=== PATIENT | male | born 1950 ===

== ENCOUNTER 2018-06-15 14:41 | Inpatient (IN) ==
[2018-06-15] MEDS ORDERED: ASPIRIN PO ONE (15:05)
[2018-06-15 15:29] LABS: BASO# 0.06 X1000 (0.0-0.2); BASO% 0.8 % (0.0-0.8); EOS# 0.54 X1000 (0.0-0.7); EOS% 7.6 % (0.0-10.0); HEMATOCRIT 36.8 % (42.0-52.0); HEMOGLOBIN 12.4 g/dL (14.0-18.0); IMM GRAN# 0.02 X1000 (0.0-0.04); IMM GRAN% 0.3 % (0.0-0.5); LYMPH# 2.38 X1000 (1.2-3.4); LYMPH% 33.6 % (20.5-51.1); MCHC 33.7 g/dL (33-37); MONO% 8.5 % (1.7-9.3); MPV 9.8 FL (7.4-10.4); NEUT# 3.49 X1000 (1.4-6.5); NEUT% 49.2 % (42.2-75.2); PLT 344 X1000 (130-400); RBC 4.28 XMIL (4.7-6.1); RDW 12.9 % (11.5-14.5); WBC 7.09 X1000 (4.8-10.8)
[2018-06-15 15:39] LABS: INR 0.98; PROTIME 13.8 Seconds (11.0-16.0)
[2018-06-15 15:40] LABS: PTT 27.3 Seconds (22.3-41.8)
[2018-06-15 15:57] LABS: AGAP 9; ALB/GLOB RATIO 1.7; ALBUMIN 4.4 g/dL (3.5-5.0); ALKALINE PHOSPHATASE 78 U/L (32-122); BUN 41 mg/dL (8-22); CALCIUM 9.3 mg/dL (8.8-10.2); CHLORIDE 106 mmol/L (98-107); CK PROFILE 164 U/L (24-204); COSMO 284; CREATININE 2.4 mg/dL (0.7-1.2); GLUCOSE 207 mg/dL (70-104); GOT 17 U/L (10-34); GPT 19 U/L (10-44); SODIUM 134 mmol/L (136-145); TCO2 19 mmol/L (25-35); TOTAL BILIRUBIN 0.18 mg/dL (0.20-1.00)
--- NOTE | 2018-06-15 16:05 | Diag Imaging Result Doc PS360 ---
EXAM: CHEST-1 VIEW HISTORY: chest pain TECHNIQUE: Chest single view COMPARISON: None. FINDINGS: The lungs are well expanded. The heart is not enlarged. The vessels are not distended. There are no infiltrates. No effusion identified. IMPRESSION: Negative exam. Electronically signed by Tiburcio Arceo 06/15/2018 4:03 PM
[2018-06-15 16:06] LABS: POTASSIUM 6.9 mmol/L (3.5-5.1)
[2018-06-15] MEDS ORDERED: CALCIUM CHLORIDE SYRINGE IV ONE (16:07)
[2018-06-15] MEDS ORDERED: D50W SYRINGE IV ONE ×2 (16:08→21:00)
[2018-06-15] MEDS ORDERED: HUMULIN R IV ONE ×2 (16:08→21:00)
[2018-06-15] MEDS ORDERED: SODIUM BICARBONATE 8.4% IV PUSH ONE (16:09)
[2018-06-15] MEDS ORDERED: VENTOLIN HFA INH ONE (16:10)
--- NOTE | 2018-06-15 17:06 | PROVIDER DOCUMENTATION ---
This chart was entered by Monika Carmichael Scribe, acting as scribe for Aravind Moyer MD. HPI-Chest Pain - General Chief Complaint: Weakness Stated Complaint: WEAKNESS Time Seen by Provider: 06/15/18 14:51 Source: patient Allergies/Adverse Reactions: Patient Allergies Allergy/AdvReac Type Severity Reaction Status Date / Time No Known Allergies Allergy Verified 06/15/18 15:12 Home Medications: Home Medication List Medication Instructions Recorded Confirmed Last Taken Type Unobtainable [Home Meds 06/15/18 06/15/18 Unknown History Unobtainable] - History of Present Illness-CP Nature of Presenting Problem: 68yom with hx of diabetes, HTN, renal disease c/o chest pain that radiates to neck and bilateral shoulders with low blood pressure for 2 days. He reports he went to Med [facility]urg urgent care today due to low blood pressure that he checked himself at home. He denies pain currently. He denies alcohol use and smoking. He denies diaphoresis and sob. He denies fever, chills, nausea, vomiting, diarrhea, and sob. Location: reports: central Chest Pain Radiation: reports: neck, shoulders (bilateral) Quality of Pain: reports: none Severity in ED: mild Onset/Duration: 2 days ago Timing: gone now, intermittent Context/Activities at Onset: reports: none Modifying Factors: improves with: nothing Associated Symptoms: denies: diaphoresis, fever/chills, shortness of breath Similar Symptoms Previously?: No Recently Seen Here or By Another Healthcare Provider: Yes ([facility] ) Review of Systems - Adult - REVIEW OF SYSTEMS - ADULT Constitutional: denies: chills, fever Eyes: denies: discharge, dry eyes Ears, Nose, Mouth & Throat: denies: ear discharge, ear pain Cardiovascular: reports: chest pain (radiates to neck and bilateral shoulders), other (low blood pressure). denies: palpitations Respiratory: denies: cough, shortness of breath Gastrointestinal: denies: abdominal pain, diarrhea, nausea, vomiting Genitourinary: denies: dysuria, hematuria Musculoskeletal: denies: back pain, muscle aches, muscle weakness Integumentary: reports: no symptoms reported Neurological: denies: dizziness/vertigo, headache/migraines Psychiatric: reports: no symptoms reported Endocrine: reports: no symptoms reported Hematologic/Lymphatic: reports: no symptoms reported Allergic/Immunologic: reports: no symptoms reported All Other Systems: Reviewed and Negative Past History - Adult - PAST MEDICAL HISTORY-ADULT Review of Records: reports: Old Records Reviewed, Nursing Assessment Review, Medications Reviewed Cardiovascular: reports: HTN Genitourinary: reports: kidney disease Endocrine/Immune: reports: Diabetes - PRIOR SURGERIES/PROCEDURES Surgical/Procedure History: reports: other (circumcision) - IMMUNIZATION STATUS Childhood Immunizations: See Nurse Assessment Flu Vaccine: See Nurse Assessment - FAMILY HISTORY Family History: reviewed, not pertinent - SOCIAL HISTORY Smoking: non-smoker Substance Use: denies Living Situation: family Physical Exam-General - PHYSICAL EXAM-ADULT Initial Vital Signs Reviewed: Yes - CONSTITUTIONAL General Appearance: alert, no apparent distress - EYES Eyes: PERRL/EOMI, pink conjunctivae - NECK Neck: non-tender, supple - RESPIRATORY Respiratory: lungs clear, normal breath sounds - CARDIOVASCULAR Cardiovascular: regular rate, rhythm, no murmur - GASTROINTESTINAL (ABDOMEN) Abdominal Exam: non tender, soft - MUSCULOSKELETAL Extremity: normal range of motion, non-tender, normal inspection, no pedal edema - SKIN Integumentary: normal color, warm/dry - NEUROLOGIC Neurologic: grossly normal, no motor/sensory deficits - PSYCHIATRIC Psych/Mental Status: normal mood/affect, normal thought content, normal thought process, oriented x 3 - HEART Score HEART Score: History: Highly Suspicious HEART Score: ECG: Normal HEART Score: Age: > or = 65 Years HEART Score: Risk Factors for Atherosclerotic Disease: > or = 3 Risk Factors or History of Atherosclerotic Disease HEART Score: Troponin: < or = Normal Limit Total HEART Score:: 6 Progress - PLAN OF CARE/RESULTS Progress/Plan/Lab Results: Vital Signs - 8 hr 06/15/18 14:59 06/15/18 15:00 06/15/18 15:05 Temperature 97.8 F Pulse Rate 61 62 59 L Respiratory Rate 14 14 18 Blood Pressure 174/63 174/63 O2 Sat by Pulse Oximetry 100 06/15/18 15:10 06/15/18 15:20 06/15/18 15:30 Temperature Pulse Rate 60 56 L 57 L Respiratory Rate 13 13 16 Blood Pressure O2 Sat by Pulse Oximetry 100 100 100 06/15/18 15:40 06/15/18 15:50 06/15/18 16:00 Temperature Pulse Rate 54 L 49 L 50 L Respiratory Rate 15 12 13 Blood Pressure O2 Sat by Pulse Oximetry 100 100 100 06/15/18 16:10 Temperature Pulse Rate 50 L Respiratory Rate 12 Blood Pressure O2 Sat by Pulse Oximetry 100 Laboratory Results - last 24 hr 06/15/18 06/15/18 06/15/18 14:55 14:55 14:55 WBC 7.09 RBC 4.28 L Hgb 12.4 L Hct 36.8 L MCV 86.0 MCH 29.0 MCHC 33.7 RDW Std Deviation 12.9 Plt Count 344 MPV 9.8 Immature Gran % (Auto) 0.3 Neut % (Auto) 49.2 Lymph % (Auto) 33.6 [place] % (Auto) 8.5 Eos % (Auto) 7.6 Baso % (Auto) 0.8 Immature Gran # (Auto) 0.02 Neut # (Auto) 3.49 Lymph # (Auto) 2.38 [place] # (Auto) 0.60 H Eos # (Auto) 0.54 Baso # (Auto) 0.06 PT INR PTT (Actin FS) Sodium 134 L Potassium 6.9 H* Chloride 106 Carbon Dioxide 19 L Anion Gap 9 BUN 41 H Creatinine 2.4 H BUN/Creatinine Ratio 17 Glucose 207 H POC Glucose Calculated Osmolality 284 Calcium 9.3 Total Bilirubin 0.18 L AST 17 ALT 19 Alkaline Phosphatase 78 Creatine Kinase 164 Troponin T Ioj-L-Fbggwbkisnl Pept 423 H Total Protein 7.0 Albumin 4.4 Globulin 2.6 Albumin/Globulin Ratio 1.7 06/15/18 06/15/18 06/15/18 14:55 14:55 15:13 WBC RBC Hgb Hct MCV MCH MCHC RDW Std Deviation Plt Count MPV Immature Gran % (Auto) Neut % (Auto) Lymph % (Auto) [place] % (Auto) Eos % (Auto) Baso % (Auto) Immature Gran # (Auto) Neut # (Auto) Lymph # (Auto) [place] # (Auto) Eos # (Auto) Baso # (Auto) PT 13.8 INR 0.98 PTT (Actin FS) 27.3 Sodium Potassium Chloride Carbon Dioxide Anion Gap BUN Creatinine BUN/Creatinine Ratio Glucose POC Glucose 210 H Calculated Osmolality Calcium Total Bilirubin AST ALT Alkaline Phosphatase Creatine Kinase Troponin T < 0.010 Ojn-R-Crnngyalrig Pept Total Protein Albumin Globulin Albumin/Globulin Ratio Orders Category Date Time Status Cardiac Monitoring DIRECTED Care 06/15/18 15:05 Active Oxygen Therapy- ED Nursing DIRECTED Care 06/15/18 15:05 Active Saline Loc NOW Care 06/15/18 15:05 Active CHEST-1 VIEW [RAD] Stat Exams 06/15/18 15:06 Completed CBC WITH ELECTRONIC DIFF [HEME] Stat Lab 06/15/18 14:55 Completed CK PROFILE [SP CHEM] Stat Lab 06/15/18 14:55 Completed COMPREHENSIVE METABOLIC PANEL [CHEM] Stat Lab 06/15/18 14:55 Completed POTASSIUM [CHEM] Routine Lab 06/15/18 22:00 Ordered PRO B-NATRIURETIC PEPTIDE Stat Lab 06/15/18 14:55 Completed PROTIME WITH INR [COAG] Stat Lab 06/15/18 14:55 Completed PTT [COAG] Stat Lab 06/15/18 14:55 Completed RENAL PROFILE [CHEM] DAILY Lab 06/16/18 06:00 Ordered RENAL PROFILE [CHEM] DAILY Lab 06/17/18 06:00 Ordered RENAL PROFILE [CHEM] DAILY Lab 06/18/18 06:00 Ordered TROPONIN T Stat Lab 06/15/18 14:55 Completed Albuterol Sulfate Inhaler [Ventolin Hfa] Med 06/15/18 16:10 Discontinued 2 puff INH NOW ONE Aspirin Med 06/15/18 15:05 Discontinued 325 mg PO NOW ONE Calcium Chloride Syringe Med 06/15/18 16:07 Discontinued 1 gm IV NOW ONE Dextrose 50% Syringe [D50w Syringe] Med 06/15/18 16:08 Discontinued 25 ml IV NOW ONE Insulin Human Regular [Humulin R] Med 06/15/18 16:08 Discontinued 10 unit IV NOW ONE Sodium Bicarbonate 8.4% Med 06/15/18 16:09 Discontinued 100 meq IV PUSH NOW ONE CP/SOB/Palp >45 yrs of Age Stat Oth 06/15/18 15:05 Ordered MDI Treatments Stat Oth 06/15/18 16:10 Active EKG [EKG] Routine Ther 06/16/18 07:00 Ordered EKG [EKG] Stat Ther 06/15/18 15:05 Ordered Result Diagrams: 06/15/18 14:55 06/15/18 14:55 - REASSESSMENT Reassessment #2 Time Reassessed: 17:02 Status: improving (lab reported critical hyperkalemia: following meds given ( see orders) pt rhythm now NSR @ 68, and he reports feeling better. will consult for admit.) - EKG 1 Time of EKG reading by physician:: 15:07 EKG Read and Signed by:: Aravind Moyer EKG Interpretation (*Must complete 3 of following elements*): Abnormal Rate: 58 Rhythm: Sinus bradycardia [place]: left ST Wave: normal - XRAY 1 XRAY Study: Chest Impression: Normal (FINDINGS: The lungs are well expanded. The heart is not enlarged. The vessels are not distended. There are no infiltrates. No effusion identified. IMPRESSION: Negative exam.) - CONSULTS/PCP/HOSPITALIST Notification #1 *Consult/PCP/Hospitalist*: Dr. Baptiste Time Discussed: 16:57 Consult Disposition: Admit Departure - Departure Date of Disposition Decision: 06/15/18 Time of Disposition Decision: 17:05 DIAGNOSIS: Cardiac rhythm disturbance, Acute hyperkalemia, SO (acute kidney injury) Disposition: ADMITTED INPATIENT 09 Certified Medical Emergency: Emergent Condition: Stable Referrals and Follow-Ups: Da Hood Jr, MD [Primary Care Provider] - - Critical Care Note This patient required my direct & personal management of CC.: Yes Total Time (mins): 32 Critical Care Statement: This patient required my direct personal management to treat or rule out processes, the absence of which, could potentiallly result in sudden, clinically significant life or limb threatening deterioration. Attestation - Physician/ HUYEN Attestation Patient care was provided by Advanced Practice Provider:: No The physician spent face to face time with patient:: Yes Advanced Practice Provider documentation review:: Supervising physician onsite and consulted in the evaluation and care of this patient. The physician did have a face to face encounter with the patient. This chart was documented by the indicated scribe, (Monika Carmichael Scribe) and accurately reflects the services I performed and decisions made by me, Aravind Moyer MD, as attested by the provider's signature.
[2018-06-15] MEDS: NS 1,000 ML IV SCH (17:30)
[2018-06-15 17:49] LABS: UR CREAT RANDOM 51.2 mg/dL (14-26)
[2018-06-15] MEDS: ALBUTEROL NEB INH SCH ×2 (18:03→21:30)
[2018-06-15] MEDS ORDERED: APRESOLINE IV PRN (18:18)
[2018-06-15 18:31] LABS: HEMOGLOBIN A1C 10.2 % (4.8-6.0)
[2018-06-15] MEDS: VELTASSA PO SCH (18:31)
[2018-06-15 19:11] LABS: IRON SATURATION 34 %; TIBC 255 ug/dL; TOTAL IRON 86 ug/dL (53-167); UNBOUND IRON 169 ug/dL (112-346)
[2018-06-15 19:35] LABS: FREE T4 1.04 ng/dL (0.93-1.70); TSH 2.63 uIUmL (0.27-4.20)
[2018-06-15 19:54] LABS: URINE SOURCE CATH
[2018-06-15 19:57] LABS: BILIRUBIN URINE NEGATIVE (NEGATIVE); BLOOD URINE NEGATIVE (NEGATIVE); COLOR YELLOW; GLUCOSE URINE 150 mg/dL (NEGATIVE); KETONE URINE NEGATIVE (NEGATIVE); LEUKOCYTES URINE NEGATIVE (NEGATIVE); NITRITE URINE NEGATIVE (NEGATIVE); PH URINE 5.5; PROTEIN URINE NEGATIVE (NEGATIVE); SP GRAVITY URINE 1.005; TURBIDITY URINE CLEAR (CLEAR); UROBILINOGEN URINE NORMAL (NORMAL)
[2018-06-15 19:59] LABS: UR EPITHELIAL CELLS <10 /HPF (<10); URINE BACTERIA NEGATIVE /HPF; URINE RBC <10 /HPF (<10); URINE WBC <10 /HPF (<10)
--- NOTE | 2018-06-15 20:42 | Diag Imaging Result Doc PS360 ---
EXAM: US RENAL 2 (RETROPER) COMPLETE HISTORY: sandeep, hyperkalemia TECHNIQUE: Renal ultrasound COMPARISON: None. FINDINGS: The right kidney measures 10.1 x 4.2 x 5.6 cm. Normal renal echotexture and cortical thickness. No renal stone or hydronephrosis. No renal mass. The left kidney measures 11.3 x 4.4 x 5.5 cm. There is a 2.2 cm cyst in the mid kidney. There also appears to be a 3.5 cm hypoechoic nodule in the mid kidney. No stone or hydronephrosis. The urinary bladder is distended and is normal. IMPRESSION: Left renal cyst with possibly a solid left renal mass. A CT with contrast is recommended. Electronically signed by Tiburcio Arceo 06/15/2018 8:39 PM
[2018-06-15] MEDS ORDERED: HUMULIN R SUBQ SCH (21:00)
[2018-06-15] MEDS: HEPARIN SUBQ SCH (21:11)
[2018-06-15] MEDS ORDERED: TYLENOL PO PRN (22:32)
[2018-06-16] MEDS: VELTASSA PO SCH ×2 (00:37→04:56)
[2018-06-16] MEDS: NS 1,000 ML IV SCH ×3 (03:25→23:20)
[2018-06-16] MEDS: HUMULIN R SUBQ SCH ×5 (04:56→21:13)
[2018-06-16 06:27] LABS: AGAP 14; ALBUMIN 4.3 g/dL (3.5-5.0); BUN 33 mg/dL (8-22); CALCIUM 9.9 mg/dL (8.8-10.2); CHLORIDE 102 mmol/L (98-107); COSMO 288; CREATININE 1.9 mg/dL (0.7-1.2); GLUCOSE 294 mg/dL (70-104); PHOSPHORUS 4.4 mg/dL (2.7-4.5); POTASSIUM 5.1 mmol/L (3.5-5.1); SODIUM 135 mmol/L (136-145); TCO2 19 mmol/L (25-35)
[2018-06-16] MEDS: HEPARIN SUBQ SCH ×2 (09:18→21:14)
[2018-06-16] MEDS: ASPIRIN PO SCH (09:18)
[2018-06-16] MEDS: LEVEMIR SUBQ SCH ×2 (09:22→21:14)
--- NOTE | 2018-06-16 10:27 | Diag Imaging Result Doc PS360 ---
EXAM: CT ABDOMEN/PELVIS W/O CONTRAST - 06/16/2018 HISTORY: renal mass TECHNIQUE: CT abdomen/pelvis without contrast. No contrast administered per request of the referring provider. COMPARISON: 06/15/2018 renal ultrasound FINDINGS: Evaluation for renal mass is substantially limited without administered intravenous contrast. There is no discrete solid renal mass identified. There is no renal stone or hydronephrosis identified. There are no substantial abnormalities of the liver, spleen, adrenal glands identified. There are multiple small calcifications of the pancreas, which can be seen with chronic pancreatitis. There is no pancreatic inflammation identified. There is no pancreatic mass identified. There are no calcified gallstones or pericholecystic inflammation seen. There is no evidence of bowel obstruction. The appendix is unremarkable. There is no evidence of diverticulitis. There is some retained fecal debris in colon and rectum. There is no free air, free fluid, or abscess identified. There are nonspecific small mesenteric and retroperitoneal lymph nodes. There are lumbar spine degenerative changes noted. IMPRESSION: No discrete solid renal mass. However, a solid renal mass may not be visible without administered intravenous contrast. Small pancreatic calcifications, which can be seen with chronic pancreatitis. No evidence of pancreatic inflammation. Nonspecific small mesenteric and retroperitoneal lymph nodes. Lumbar spine degenerative changes. Possible constipation. This exam was performed using automated exposure control, adjustment of mA or kV according to patient size, and/or use of iterative reconstruction technique. Electronically signed by Thuan Buck 06/16/2018 10:25 AM
--- NOTE | 2018-06-16 13:57 | PROGRESS NOTE ---
DATE: 06/16/2018 SUBJECTIVE: The patient states that he feels a lot better today. He denies having any shortness of breath, chest pain or palpitations. He ate all of his breakfast this morning. OBJECTIVE: Vital Signs: Temperature 97.9 degrees, blood pressure 156/68, heart rate 66, respirations 16, O2 saturation 100% on room air. Urine output 2.2 L. Intake 1.5 L. General: This is an overweight male lying in bed in no acute distress. Head normocephalic, atraumatic. Neck: Supple. No JVD. No lymphadenopathy. Heart: S1, S2 normal. Regular rate and rhythm. Lungs: Clear to auscultation bilaterally. No wheezing, no rales, no rhonchi. Abdomen: Positive bowel sounds. Soft, obese, nontender, nondistended. Extremities: No edema, no cyanosis. Patient has a healing wound on the sole of his right foot. No drainage noted or erythema. Neuro: The patient is alert and oriented x4. LABS: Sodium 135, potassium 5.1, chloride 102, CO2 19, BUN 33, creatinine 1.9, glucose 294, calcium 9.9, hemoglobin A1c 10.2, troponin 0.19, cholesterol 201, triglycerides 282, LDL 144. Renal ultrasound shows left renal cyst with measurements of 3.5 cm located in the mid kidney. ASSESSMENT AND PLAN: 1. Hyperkalemia. Improved. Multifactorial. The patient was on Bactrim and lisinopril. Will continue to monitor the potassium closely. 2. Acute kidney injury. Improved. The patient has adequate urine output. Will continue on IV fluids. The patient does have a renal cyst seen on ultrasound. This will need to be followed closely. Further recommendations to follow from the metallurgical inspector. 3. Elevated troponin. Will consult cardiology. Continue on aspirin and lopressor. Echo is pending. 4. Uncontrolled insulin dependent diabetes mellitus. Will start the patient on Humulin 70/30 subcutaneous twice a day along with sliding scale insulin coverage. Will also consult the dietitian. 5. Obesity. Aware. 6. Hypertension. Will restart Norvasc. Add lopressor. 7. Hyperlipidemia. Will start lipitor. 8. Deep vein thrombosis prophylaxis. Continue on heparin. cc: Chelsea Baptiste MD [facility]
[2018-06-16] MEDS: LOPRESSOR PO SCH ×2 (15:30→21:14)
[2018-06-16] MEDS ORDERED: ZOCOR PO SCH (21:00)
[2018-06-16] MEDS ORDERED: INSULIN PEN NEEDLES ONE (21:14)
[2018-06-16] MEDS: LIPITOR PO SCH (21:15)
[2018-06-17] MEDS: HUMULIN R SUBQ SCH ×6 (01:28→21:16)
[2018-06-17] MEDS: NS 1,000 ML IV SCH ×3 (01:33→17:42)
--- NOTE | 2018-06-17 04:11 | HISTORY AND PHYSICAL ---
PRIMARY CARE PHYSICIAN: Dr. Da Hood. CHIEF COMPLAINT: Shoulder and neck pain. HISTORY OF PRESENT ILLNESS: Mr. Khan is a 68-year-old Richie male who presents to our ER from a local urgent care for bilateral shoulder and neck pain. The pain began on Sunday. 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 He denies any chest pain, and he denies any shortness of breath during these episodes. He has no lower extremity edema. Denies orthopnea or PND. He had more pain today, which brought him to a local urgent care. In the urgent care he had an EKG and labs done. He was noted to be hyperkalemic with renal failure, and he was noted to be in a reported junctional bradycardia. He was sent directly to our facility. In the ER here, his potassium was noted to be 6.0 with a creatinine of 2.4. He also is acidotic with a normal anion gap. His EKG here shows a sinus bradycardia at 58 beats a minute. He has been given appropriate hyperkalemia treatment and will be admitted for further treatment and evaluation. PAST MEDICAL HISTORY: 1. Chronic kidney disease: Stage unknown. He is actually scheduled to see Dr. Goldberg in the near future for chronic kidney disease. 2. Diabetes mellitus type 2 requiring insulin. 3. Hypertension. 4. Obesity. PAST SURGICAL HISTORY: He has had a circumcision. SOCIAL HISTORY: Denies tobacco, alcohol, or drug use. 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 He is . is at the bedside. FAMILY HISTORY: Both parents . Mother had diabetes and hypertension. Unclear as to the exact cause of . His father "of old age." REVIEW OF SYSTEMS: A full 14-point review of systems was obtained. In addition to the HPI, he does report some dizziness and weakness when the shoulder pain comes on, and also dizziness when he goes from a bending to a standing position. Otherwise, a 14-point review of systems was obtained and found to be negative. ALLERGIES: No known drug allergies. HOME MEDICATIONS: Unknown at this time. PHYSICAL EXAMINATION: VITAL SIGNS: Blood pressure is 174/63, heart rate 59, respiratory rate 18, O2 saturation 100% on room air, temperature 97.8. GENERAL:This is an obese Richie male lying in the hospital bed in no acute distress. NEUROLOGIC: He is awake, alert and oriented. Follows commands without focal deficits. HEENT: Head is atraumatic, normocephalic. His pupils are equal, round, and reactive to light. Oral mucosa is moist. NECK: Trachea is midline. Neck is supple. There is no cervical tenderness. Range of motion is intact. CHEST: Clear to auscultation. SHOULDERS: No tenderness to palpation. Range of motion intact. No deformity CV: Slightly bradycardic. S1 and S2 noted. GI: Soft, nondistended, nontender. Bowel sounds positive. EXTREMITIES: No edema, clubbing or cyanosis. Pulses are 1+ bilaterally. DIAGNOSTIC DATA: Chest x-ray is negative. EKG shows sinus bradycardia. WBCs 7.09, hemoglobin 12.4, hematocrit 36.8, platelet count 344. INR 0.98. Sodium 134, potassium 6.9, chloride 106. CO2 is 19, anion gap 9, BUN 41, creatinine 2.4, glucose 207. Calcium is 9.3, t-bili 0.18. AST 17, ALT 19, alkaline phosphatase 78, troponin negative. ProBNP 43, albumin 4.4. UA is pending. ASSESSMENT/PLAN: 1. Acute renal failure with associated hyperkalemia: The patient has been given appropriate potassium-lowering medications, and we are rechecking his electrolytes now. We will consult Dr. Goldberg. Will order a renal ultrasound and comprehensive urine electrolytes. Will continue to treat his potassium until it is within acceptable range. He is acidotic with a normal anion gap which is likely secondary to his renal failure. Will follow his electrolytes and acid base closely . 2. Diabetes mellitus. Will check a hemoglobin A1c, add pattern sugars and sliding-scale insulin. 3. Anemia, likely secondary to chronic disease. Will check iron studies and treat appropriately. 4. Bilateral shoulder and neck pain: Given his risk factors, angina would be a concern. He does not have any musculoskeletal tenderness on palpation. Will trend his cardiac enzymes, follow telemetry and check an echocardiogram, and likely consult Cardiology on Sunday. 5. Deep venous thrombosis prophylaxis with renally-dosed heparin. Dictated by OSCAR Muhammad for Chelsea Baptiste MD cc: OSCAR Muhammadwa, MD
[2018-06-17 05:50] LABS: HEMATOCRIT 35.6 % (42.0-52.0); HEMOGLOBIN 11.7 g/dL (14.0-18.0); MCH 28.7 PG (27-31); MCHC 32.9 g/dL (33-37); MCV 87.5 FL (81-99); MPV 9.9 FL (7.4-10.4); RBC 4.07 XMIL (4.7-6.1); RDW 13.1 % (11.5-14.5); WBC 6.09 X1000 (4.8-10.8)
[2018-06-17 06:09] LABS: AGAP 9; BUN 24 mg/dL (8-22); CALCIUM 9.4 mg/dL (8.8-10.2); CHLORIDE 108 mmol/L (98-107); CK PROFILE 144 U/L (24-204); COSMO 278; CREATININE 1.4 mg/dL (0.7-1.2); GLUCOSE 97 mg/dL (70-104); PHOSPHORUS 3.5 mg/dL (2.7-4.5); POTASSIUM 4.9 mmol/L (3.5-5.1); SODIUM 137 mmol/L (136-145); TCO2 20 mmol/L (25-35)
--- NOTE | 2018-06-17 07:26 | EKG Report ---
Test Performed on : 06/17/2018 07:04:01 AM Test Reason : elevated troponin Blood Pressure : / mmHG Vent. Rate : 054 BPM Atrial Rate : 054 BPM P-R Int : 160 ms QRS Dur : 082 ms QT Int : 394 ms P-R-T Axes : 034 -13 141 degrees QTc Int : [address] & T wave abnormality, consider lateral ischemia Abnormal ECG When compared with ECG of 16-JUN-2018 15:08, (Unconfirmed) T wave inversion now evident in Lateral leads Confirmed by Tamir Stubbs MD ([id number]) on 06/17/2018 9:16:13 PM
--- NOTE | 2018-06-17 07:47 | EKG Report ---
Test Performed on : 06/16/2018 3:08:48 PM Test Reason : elevated trop Blood Pressure : / mmHG Vent. Rate : 060 BPM Atrial Rate : 060 BPM P-R Int : 154 ms QRS Dur : 080 ms QT Int : 390 ms P-R-T Axes : 016 007 072 degrees QTc Int : 390 ms Normal sinus rhythm. Normal ECG When compared with ECG of 16-JUN-2018 06:03, (Unconfirmed) No significant change was found Confirmed by Tamir Stubbs MD ([id number]) on 06/17/2018 9:13:50 PM
--- NOTE | 2018-06-17 07:50 | EKG Report ---
Test Performed on : 06/16/2018 06:03:32 AM Test Reason : hyperkalemia/chest pain Blood Pressure : / mmHG Vent. Rate : 070 BPM Atrial Rate : 070 BPM P-R Int : 176 ms QRS Dur : 082 ms QT Int : 368 ms P-R-T Axes : 032 -20 059 degrees QTc Int : 397 ms Normal sinus rhythm. Normal ECG When compared with ECG of 15-JUN-2018 19:31, (Unconfirmed) No significant change was found Confirmed by Enoc WILCOX, Tamir Muñoz ([id number]) on 06/17/2018 9:13:19 PM
--- NOTE | 2018-06-17 07:57 | EKG Report ---
Test Performed on : 06/15/2018 3:02:47 PM Test Reason : chest pain Blood Pressure : / mmHG Vent. Rate : 058 BPM Atrial Rate : 058 BPM P-R Int : 170 ms QRS Dur : 082 ms QT Int : 372 ms P-R-T Axes : 012 -43 069 degrees QTc Int : 365 ms Sinus bradycardia. Left axis deviation Abnormal ECG No previous ECGs available Unconfirmed Result
--- NOTE | 2018-06-17 09:11 | EKG Report ---
Test Performed on : 06/15/2018 7:31:22 PM Test Reason : bradycardia Blood Pressure : / mmHG Vent. Rate : 080 BPM Atrial Rate : 080 BPM P-R Int : 142 ms QRS Dur : 078 ms QT Int : 366 ms P-R-T Axes : 025 -27 058 degrees QTc Int : 422 ms Normal sinus rhythm. Normal ECG When compared with ECG of 15-JUN-2018 15:02, (Unconfirmed) QT has lengthened Unconfirmed Result
[2018-06-17] MEDS: HEPARIN SUBQ SCH ×2 (10:04→21:15)
[2018-06-17] MEDS: LOPRESSOR PO SCH ×2 (10:04→21:15)
[2018-06-17] MEDS: NORVASC PO SCH (10:04)
[2018-06-17] MEDS: COLACE PO SCH ×2 (10:04→21:15)
[2018-06-17] MEDS: MIRALAX PO SCH ×2 (10:04→21:18)
[2018-06-17] MEDS: HUMULIN 70/30 SUBQ SCH ×2 (10:25→21:15)
[2018-06-17] MEDS ORDERED: LEXISCAN ONE (12:41)
--- NOTE | 2018-06-17 14:42 | Diag Imaging Result Document ---
PROCEDURE NAME: MYOCARDIAL PERF SCAN, STR/REST - 06/17/2018 PROCEDURE: Lexiscan Cardiolite stress test. DESCRIPTION OF PROCEDURE: Lexiscan was infused per standard protocol. There was no chest pain. Stress electrocardiogram was negative for ischemia. Following Lexiscan infusion, Cardiolite was injected; 12.8 mCi of Cardiolite was injected for the rest phase, 36.9 mCi of Cardiolite was injected for the stress phase. Images revealed significant chest wall attenuation. There is a small-sized low-grade reversible perfusion defect in the left ventricular apex with normal wall motion. Left ventricular ejection fraction was 75%. Normal left ventricular cavity size. CONCLUSIONS: 1. No chest pain. 2. Negative Lexiscan stress electrocardiogram. 3. Myocardial perfusion images revealed low-grade reversible perfusion defect in the left ventricular apex associated with significant chest wall attenuation. This could represent attenuation defect versus low-grade ischemia. Would recommend clinical correlation. 4. Left ventricular ejection fraction 75%. Wall motion was normal. cc: MD Bibiana Corona PA
--- NOTE | 2018-06-17 15:08 | NEPHROLOGY CONSULTATION ---
DATE: 06/17/2018 REASON FOR ADMISSION: Hyperkalemia, acute on chronic kidney disease. REASON FOR CONSULTATION: Hyperkalemia, acute on chronic kidney disease. CONSULTING PHYSICIAN: Chelsea Baptiste MD HISTORY OF PRESENT ILLNESS: This is a 68-year-old gentleman, known to our service from the outpatient arena. We had last seen him in our office in 2017. His creatinine at that time was 1.4. He was following with his primary physician. We had an appointment to see him in our office this week secondary to worsening renal function. He had labs drawn last week, which indicated hyperkalemia and a creatinine of 2.1 at that time. He was sent to the emergency room from a local urgent care because of junctional bradycardia. In the emergency room, he was noted to have a potassium of 6 and sinus bradycardia. His hyperkalemia was treated medically, and he was admitted for further workup and treatment. When I see him today, he is feeling much better. Potassium today is 4.9, and creatinine is down to 1.4. His urine output has been excellent. He has had greater than 1 L of urine daily. The patient was noted to be on both Bactrim and lisinopril as an outpatient setting. Those medications have been held. Today the patient has been able to eat, bathe, and dress himself without difficulty. PAST MEDICAL HISTORY: 1. Chronic kidney disease, stage 3A, with mild proteinuria secondary to diabetes. His last creatinine prior to his visit this week had been 1.4 back in 2017. He had been referred back for a creatinine of 2.1. His appointment was this . 2. Diabetes, type 2. 3. Hypertension. 4. Obesity. SURGICAL HISTORY: Circumcision. ALLERGIES: None. HOME MEDICATIONS: Gabapentin, lisinopril/hydrochlorothiazide, metformin, simvastatin, Bactrim DS, amlodipine, and labetalol. The patient states that his metformin had been held and he had been placed on insulin 70/30 and that was being transition to a different insulin; he did not have the name available. FAMILY HISTORY: Diabetes ,hypertension. SOCIAL HISTORY: No EtOH, tobacco, or illicit drug use. He continues to work. He is . REVIEW OF SYSTEMS: Pertinent positives noted above in the HPI. PHYSICAL EXAMINATION: Vital Signs: Temperature 98.2 degrees, pulse 54, respiratory rate 17, blood pressure 167/73. Intake and output: Intake 1.4 L. Output 1.1 L. General: This is an elderly gentleman, resting on the bed. He is awake and alert. He is in no acute distress. HEENT: Normocephalic, atraumatic. LALITA. Conjunctivae are pink. Oral mucosa moist. Neck: Supple without JVD. Cardiovascular: Regular rate and rhythm without murmur. Pulmonary: He is clear bilaterally. He has no increased work of breathing. Abdomen: Soft with positive bowel sounds. Genitourinary: Not inspected. He is voiding. Extremities: No clubbing, cyanosis, or edema. He is moving all extremities and ambulatory with assistance. Integumentary: Skin is warm and dry. Neurologic: Grossly nonfocal. LABORATORY DATA: WBC of 6.0, hemoglobin 11.7. Sodium 137, potassium 4.9, chloride 108, CO2 of 20, BUN 24, creatinine 1.4 (1.9, 2.4). ASSESSMENT AND PLAN: Acute on chronic kidney disease with hyperkalemia. The patient was noted to be on Bactrim and lisinopril as an outpatient, which may have contributed to his hyperkalemia. Those medications have been held. His potassium was treated appropriately. The patient has been resuscitated with fluids, and creatinine is down to 1.4 which is the level that was 2 years ago. I did discuss with the patient that we would still see him in follow-up in the office. I would changes appointment from this week to about 2 weeks from discharge and that our office would contact him with the date and time and that he would need to have a set of labs drawn a week before his appointment. Patient expressed understanding. We discussed dates that our lab was open. His is a patient our office, and he is familiar with the procedure. Dictated by OSCAR Chao for Wilfredo Goldberg MD Face to face encounter, data reviewed, discussed with Vinicio Dawn on 06/17/18. I agree with the above assessment and plan of care. cc: Wilfredo Goldberg MD [facility]
--- NOTE | 2018-06-17 15:28 | ECHO REPORT ---
ORDER DATE: 06/16/2018 ECHOCARDIOGRAPHIC MEASUREMENTS: Interventricular septum 1.4 cm. Left ventricular posterior wall 1.2 cm. Diastolic diameter 3.9. Left atrium 4 cm. Aorta 3.5 cm. SUMMARY OF THE 2-DIMENSIONAL IMAGING: Normal left ventricular cavity size. Left ventricular hypertrophy. Estimated ejection fraction of 60%. Aortic valve leaflets are trileaflet. Mitral valve was normal. Tricuspid valve was normal. Pulmonic valve was normal. Peak velocity across the aortic valve less than 2 m/sec. There is no aortic stenosis or regurgitation. There is trace mitral regurgitation. Peak velocity across the tricuspid valve less than 2 m/sec. There is trace tricuspid regurgitation. There is no pericardial effusion or obvious intracardiac mass or thrombus seen. cc: MD Brian Corona CRNP
--- NOTE | 2018-06-17 18:01 | CARDIOLOGY CONSULTATION ---
DATE: 06/17/2018 CONSULTATION REQUESTED BY: Hospitalist service REASON FOR CONSULTATION: Patient who feels weak. Positive troponin, question of [id number] CA. HISTORY: Mr. Khan presented to the ER with complaints of weakness and fatigue on June 15. In addition, he reported having some mild bilateral shoulder and neck discomfort that started about 4 days prior to admission. The pain happened when he was doing his usual job and relieved with rest. Denies dyspnea, nausea/vomiting, palpitations, or syncope. The patient was hypertensive at the time of initial presentation. His troponin levels checked slightly positive at 0.192, 0.41, 0.269, and 0.185. He has been admitted for observation and evaluation of heart disease. PAST HISTORY: Positive for chronic kidney disease. The patient is on clinical surveillance by Dr. Goldberg. The patient has hypertension, diabetes mellitus type 2, and obesity. PAST SURGICAL HISTORY: Noncontributory. SOCIAL HISTORY: He is . 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 He is originally from [place]. He has 1 son. Not a smoker. Lives at home. FAMILY HISTORY: Noncontributory. ALLERGIES: Negative. CURRENT MEDICATIONS: Please refer to the MAR. REVIEW OF SYSTEMS: Multiple systems were checked. There is really nothing positive. PHYSICAL EXAMINATION: Vital signs: Blood pressure 167/73, temperature 98.2 degrees, pulse 54, respirations 18. General: He is awake, alert, oriented, in no distress. HEENT: Unremarkable. Chest: Clear to auscultation and percussion. Heart: Sounds regular and rhythmic. No gallop or murmur. Abdomen: Nontender, soft. No masses. No hepatomegaly. Extremities: Show good pulses. No peripheral edema. Neurologic: Nonfocal. Moves 4 extremities. IMPRESSION: 1. Patient who has discomfort in the shoulder and neck, which is atypical, with elevation of troponin. This could represent either pericarditis, given the fact that he has rapidly worsening renal function versus [id number] myocardial infarction. 2. History of diabetes mellitus. 3. History of hypertension. RECOMMENDATION: We will arrange for echocardiogram and nuclear stress test to further evaluate. Based on the results, we will advise further intervention. cc: Gus Ocampo MD
[2018-06-17] MEDS ORDERED: NS 1,000 ML IV SCH (19:45)
[2018-06-17] MEDS: ASPIRIN PO SCH (20:27)
[2018-06-17] MEDS ORDERED: INSULIN PEN NEEDLES ONE (21:06)
[2018-06-17] MEDS: LIPITOR PO SCH (21:17)
[2018-06-18] MEDS: HUMULIN R SUBQ SCH ×4 (00:02→13:24)
--- NOTE | 2018-06-18 01:25 | PROGRESS NOTE ---
DATE: 06/17/2018 SUBJECTIVE: The patient is resting comfortably in bed. He states that he feels good today. No acute events noted overnight. OBJECTIVE: Vital Signs: Temperature 97.7 degrees, blood pressure 146/71, heart rate 58, respirations 13, O2 saturations 100% on room air. Urine output 1.1 L. Intake 1.4 L. General: This is an elderly male lying in bed in no acute distress. Heart: S1, S2 normal. Regular rate and rhythm. Lungs: Clear to auscultation bilaterally. No wheezing. No rales. No rhonchi. Abdomen: Positive bowel sounds. Soft, nontender, nondistended. Extremities: No edema. No cyanosis. No calf tenderness. Neurologic: The patient is alert and oriented x3. LABS: White blood cell count 6, hemoglobin 11, hematocrit 35, platelets 310, 000. Sodium 137, potassium 4.9, chloride 108, CO2 of 20, BUN 24, creatinine 1.4, glucose 97. ASSESSMENT AND PLAN: 1. Elevated troponin. The patient is scheduled for stress test today. We will await the results and further recommendations from Cardiology. In the meantime will continue on the current cardiac medications. 2. Acute kidney injury. Improved. Nephrology is following. 3. Hyperkalemia. Resolved. 4. Poorly controlled insulin-dependent diabetes mellitus. Continue on Humulin 70/30. 5. Hyperlipidemia. Continue on Lipitor. 6. Hypertension. Continue on Norvasc and Lopressor. 7. Obesity. Aware. 8. Constipation. We will start MiraLAX and Colace. 9. Disposition. We will plan to discharge the patient home once cleared by the filling winder. cc: Chelsea Baptiste MD MTDD
[2018-06-18 05:38] LABS: HEMATOCRIT 34.2 % (42.0-52.0); HEMOGLOBIN 11.3 g/dL (14.0-18.0); MCH 28.8 PG (27-31); MCV 87.2 FL (81-99); MPV 9.9 FL (7.4-10.4); RBC 3.92 XMIL (4.7-6.1); RDW 12.9 % (11.5-14.5); WBC 5.66 X1000 (4.8-10.8)
[2018-06-18 06:04] LABS: AGAP 9; ALBUMIN 3.6 g/dL (3.5-5.0); BUN 20 mg/dL (8-22); CHLORIDE 109 mmol/L (98-107); COSMO 281; CREATININE 1.2 mg/dL (0.7-1.2); GLUCOSE 144 mg/dL (70-104); PHOSPHORUS 2.8 mg/dL (2.7-4.5); POTASSIUM 4.5 mmol/L (3.5-5.1); SODIUM 138 mmol/L (136-145); TCO2 20 mmol/L (25-35)
--- NOTE | 2018-06-18 08:46 | EKG Report ---
Test Performed on : 06/18/2018 08:15:11 AM Test Reason : chest pain/non ST [facility] Blood Pressure : / mmHG Vent. Rate : 056 BPM Atrial Rate : 056 BPM P-R Int : 158 ms QRS Dur : 080 ms QT Int : 406 ms P-R-T Axes : -05 -34 084 degrees QTc Int : 391 ms Sinus bradycardia. Left axis deviation Abnormal ECG When compared with ECG of 17-JUN-2018 07:04, Nonspecific T wave abnormality has replaced inverted T waves in Lateral leads Confirmed by Enoc WILCOX, Tamir Muñoz ([id number]) on 06/18/2018 8:47:33 AM
[2018-06-18] MEDS ORDERED: ASPIRIN EC PO SCH (09:00)
--- NOTE | 2018-06-18 09:01 | CARDIOLOGY PROGRESS NOTE ---
DATE: 06/18/2018 CHIEF COMPLAINT: Chest pain. SUBJECTIVE: The patient stated that he is feeling better. His chest is not bothering him. His ECG has shown a very subtle abnormality in the lateral leads. His nuclear stress test basically in my opinion shows a questionable basal inferolateral partially reversible defect. This is very subtle; however, it could be real. There is a minimal apical attenuation. His echocardiogram was unremarkable. OBJECTIVE: VITAL SIGNS: Blood pressure 150/79, temperature 98.2 degrees, pulse 57, respirations 18. GENERAL: He is awake, alert and oriented. No distress. HEENT: Unremarkable. CHEST: Clear to auscultation and percussion. HEART: Sounds regular and rhythmic. No gallop or murmur. ABDOMEN: Obese, nontender. EXTREMITIES: Show good pulses, no edema. NEUROLOGICAL: Follows commands. BLOOD WORK: White count 5,660, hemoglobin 11.3, hematocrit 34.2. Sodium 138, potassium 4.5, carbon dioxide 20, BUN 20, creatinine 1.2. Troponin and C-reactive protein are pending for this morning. His lipid panel showed total cholesterol 201, triglycerides 282, LDL 144, HDL 30. TSH was normal. His hemoglobin A1c was 10.2% which is very high. IMPRESSION: 1. Patient who presented to the hospital with very atypical chest discomfort; however, had positive troponin levels and subtle ECG changes in the lateral leads. 2. Poorly controlled diabetes mellitus type 2. 3. Acute renal insufficiency with hypercalcemia on top of chronic renal dysfunction. 4. History of hypertension. RECOMMENDATIONS: At this time, the patient's nuclear stress test abnormalities are really very minimal. In theory, the patient could be managed well medically with aspirin, statins, beta blockers and optimization of his diabetes and hypertension with adequate pharmacological intervention. I am going to do a followup ECG and followup troponin levels as well as a C-reactive protein. If those numbers are acceptable, and the ECG is unremarkable, then I think he could probably go home and I will arrange for a followup with me in a couple of weeks in the office. He might need a heart catheterization; however, at this point in time given the minor abnormality on the stress test, I believe he could do well with intensive medical regimen. We will follow him. cc: Gus Ocampo MD
[2018-06-18] MEDS: HEPARIN SUBQ SCH (10:06)
[2018-06-18] MEDS: LOPRESSOR PO SCH (10:07)
[2018-06-18] MEDS: HUMULIN 70/30 SUBQ SCH (10:07)
[2018-06-18] MEDS: COLACE PO SCH (10:07)
[2018-06-18] MEDS: NORVASC PO SCH (10:08)
[2018-06-18] MEDS: MIRALAX PO SCH (10:08)
[2018-06-18 11:34] VITALS: BP 155/74
--- NOTE | 2018-06-18 13:27 | NEPHROLOGY PROGRESS NOTE ---
DATE: 06/18/2018 SUBJECTIVE: Patient is sitting up in bed. He thinks he will go home later today. OBJECTIVE: Vital Signs: Temperature 97.8 degrees, pulse 60, respiratory rate 30, blood pressure 121/60, intake 4.7 L, output 800 mL. General: Elderly gentleman resting in bed in no acute distress. HEENT: Normocephalic, atraumatic. LALITA. Oral mucosa moist. Neck: Supple. No JVD. Cardiovascular: Regular rate and rhythm. No murmur. Pulmonary: Clear bilaterally on room air. No increased work of breathing. Abdomen: Soft with positive bowel sounds. : Voiding. Extremities: No clubbing, cyanosis or edema. LAB DATA: WBC of 5.6, hemoglobin 11.3, sodium 138, potassium 4.5, CO2 20, BUN 20, creatinine 1.2. ASSESSMENT AND PLAN: 1. Acute on chronic kidney disease with previous hyperkalemia. His hyperkalemia is resolved. His renal function has continued to improve with the withholding of lisinopril and Bactrim. I did discuss with him that he may have some lisinopril effect on his creatinine but that if at all possible we would like to restart that. We will continue to hold that until we see him in the office as an outpatient and then we would restart that with some followup labs to make sure that his renal function remains stable. From a renal perspective, the patient can be discharged at the discretion of the primary. Dictated by OSCAR Chao for Wilfredo Goldberg MD Face to face encounter, data reviewed, discussed with Vinicio Dawn on 06/18/18. I agree with the above assessment and plan of care. cc: Wilfredo Goldberg MD [facility]
[2018-06-18] MEDS ORDERED: FLU VACCINE IM ONE (14:34)
[2018-06-18] MEDS ORDERED: PNEUMOVAX 23 IM ONE (14:34)
--- NOTE | 2018-06-19 08:43 | DISCHARGE SUMMARY ---
ADMISSION DATE: 06/15/2018 DISCHARGE DATE: 06/18/2018 PRINCIPAL DIAGNOSIS: Acute kidney injury. SECONDARY DIAGNOSES: 1. Hyperkalemia. 2. Elevated troponin. 3. Diabetes mellitus. 4. Anemia likely secondary to chronic disease. 5. Hypertension. 6. Hyperlipidemia. 7. Obesity. DISCHARGE MEDICATIONS: 1. Aspirin 81 mg p.o. daily. 2. Colace 100 mg p.o. twice a day. 3. Humulin 70/30 15 units subcutaneous twice a day. 4. Metoprolol 25 mg p.o. twice a day. 5. Atorvastatin 40 mg p.o. at bedtime. 6. Neurontin 300 mg p.o. twice a day. 7. Lisinopril/hydrochlorothiazide 20/25 to be taken as directed. 8. Metformin to be taken as directed. 9. Amlodipine 5 mg p.o. once a day. CONSULTATIONS DONE DURING THIS HOSPITAL STAY: 1. Dr. Gus Ocampo, Cardiology. 2. Dr. Wilfredo Goldberg, Nephrology. PROCEDURES DONE DURING THIS HOSPITAL STAY: 1. Renal ultrasound, 06/15/2018. 2. Abdominal and pelvic CT on 06/16/2018. 3. Myocardial perfusion nuclear medicine scan, 06/17/2018. HOSPITAL COURSE: Mr. Tin Khan is a 68-year-old male, who was admitted to the hospital as a case of acute renal failure along with hyperkalemia. This was managed conservatively. The patient was seen by the Nephrology team. At the time of presentation, his BUN/ creatinine was 41/2.4, and as of today the BUN/creatinine is 20/1.2. The patient was noted to have a raised troponin level and was seen by the Cardiology team. He had a cardiac stress test done, and it showed myocardial perfusion image that has revealed low-grade reversible perfusion defect and a left ventricular apex associated with significant chest attenuation. The patient was seen by the Cardiology team, and they felt at this time patient will benefit more from medical treatment. The patient will be discharged today, 06/18/2018, and will need to follow up with the Cardiology team as an outpatient. DISCHARGE PHYSICAL EXAMINATION: Vital Signs: During my evaluation today, his vital signs were as follows: Temperature 99.4 degrees, pulse 57, respiratory rate 18, blood pressure is 154/74, oxygen saturation is 100%. HEENT: Atraumatic, normocephalic. Cardiovascular system: S1, S2. Irregular. Respiratory system: Has good air entry bilaterally. Abdomen: Soft, nontender. No masses felt. Extremities: Trace edema in the lower extremities. Central nervous system: No obvious focal deficit noted. LABORATORY DATA: WBCs 5.66, hematocrit is 34.2, with a platelet count of 312. Sodium is 138, potassium is 4.5, chloride is 109, bicarbonate is 20. BUN is 20, creatinine is 1.2. PLAN: The patient can be discharged home today, and to follow up with Cardiology in the outpatient. Take discharge medications as noted above. cc: Ramon Fernandez MD MTDD
== END 2018-06-18 15:47 | disposition home or self-care (01) | DRG 641 ==
LOC: ED 14:41 → SUATTDRO 17:25 → EDIPHOLD 17:25 → 3S 20:17
PROVIDERS: ATTEND Internal Medicine
CPT/HCPCS: 71010; 71045; 74176; 76770; 78452; 80053; 80061; 80069; 81001; 82550; 82570; 82728; 82746; 82948; 83036; 83540; 83550; 83721; 83880; 83935; 84132; 84156; 84300; 84439; 84443; 84484; 85025; 85027; 85610; 85651; 85730; 86140; 87205; 90686; 90732; 93005; 93010; 93017; 93306; 94640; 96361; 96374; 96375; 99285; A9270; A9500; C8929; J1644; J2785; J7030; Q9957; XXXXX